=== PATIENT | female | born 2000 | race Caucasian/White ===

== ENCOUNTER 2022-10-10 05:04 | Inpatient (IN) | payer OTHER ==
[~2022-10-10] VITALS: Ht 160 cm; Wt 114.0 kg
[~2022-10-10 05:04] MED LIST: ANTOXYBENA LEFTEAR; AZIT250 PO; Bactrim Ds Tab1 EACH PO; IBUP600 PO; NEXPLANON68 MG; Nix Lice Treatm59 ML TOP; Tylenol With C1 EACH PO
[2022-10-10 05:40] LABS: BASOPHILS ABSOLUTE AUTO 0.05 K/mm3 (0.00-0.23); BASOPHILS PERCENT AUTO 0 % (0-2); EOSINOPHILS ABSOLUTE AUTO 0.12 K/mm3 (0.00-0.68); EOSINOPHILS PERCENT AUTO 1 % (0-6); Hematocrit 34.5 % (33.0-51.0); Hemoglobin 12.3 g/dL (11.5-16.0); IMMATURE GRAN ABSOLUTE AUTO 0.12 K/mm3 (0.00-0.10); IMMATURE GRAN PERCENT AUTO 1 % (0-1); LYMPHOCYTES ABSOLUTE AUTO 3.04 K/mm3 (0.84-5.20); LYMPHOCYTES PERCENT AUTO 18 % (21-46); MONOCYTES ABSOLUTE AUTO 0.68 K/mm3 (0.16-1.47); MONOCYTES PERCENT AUTO 4 % (4-13); Mean Corpuscular HGB 29.9 pg (26.0-34.0); Mean Corpuscular HGB Conc 35.7 g/dL (31.5-36.5); Mean Corpuscular Volume 84 fL (80-100); Mean Platelet Volume 10.6 fL (9.1-12.4); NEUTROPHILS PERCENT AUTO 77 % (41-73); Platelet Count 308 K/mm3 (150-400); RDW Coefficient Variation 12.5 % (11.7-14.2); RDW Standard Deviation 37.9 fL (35.1-46.3); Red Blood Cell Count 4.11 M/mm3 (3.80-5.20); White Blood Cell Count 17.41 K/mm3 (4.00-11.30)
[2022-10-10] MEDS ORDERED: PRENATAL TABLE1 EAC2 PO (06:26)
[2022-10-10] MEDS ORDERED: FERSU300 PO (07:07)
[2022-10-10 20:05] LABS: PCO2 Cord - Arterial 57.1 mmHg (40-50); PO2 Cord - Arterial < 16 mmHg (16-20); pH Cord - Arterial 7.29 (7.28-7.35)
[2022-10-10 20:07] LABS: PCO2 Cord - Venous 51.8 mmHg (40-50); PO2 Cord - Venous < 16 mmHg (28-32); pH Umbilical Cord - Venous 7.32 (7.26-7.35)
[2022-10-11 10:24] LABS: BASOPHILS ABSOLUTE AUTO 0.04 K/mm3 (0.00-0.23); BASOPHILS PERCENT AUTO 0 % (0-2); EOSINOPHILS ABSOLUTE AUTO 0.12 K/mm3 (0.00-0.68); EOSINOPHILS PERCENT AUTO 1 % (0-6); Hematocrit 31.5 % (33.0-51.0); Hemoglobin 10.9 g/dL (11.5-16.0); IMMATURE GRAN PERCENT AUTO 1 % (0-1); LYMPHOCYTES ABSOLUTE AUTO 2.93 K/mm3 (0.84-5.20); LYMPHOCYTES PERCENT AUTO 19 % (21-46); MONOCYTES ABSOLUTE AUTO 0.66 K/mm3 (0.16-1.47); MONOCYTES PERCENT AUTO 4 % (4-13); Mean Corpuscular HGB 29.8 pg (26.0-34.0); Mean Corpuscular HGB Conc 34.6 g/dL (31.5-36.5); Mean Corpuscular Volume 86 fL (80-100); Mean Platelet Volume 10.9 fL (9.1-12.4); NEUTROPHILS ABSOLUTE AUTO 11.32 K/mm3 (1.96-9.15); NEUTROPHILS PERCENT AUTO 75 % (41-73); Platelet Count 254 K/mm3 (150-400); RDW Coefficient Variation 12.6 % (11.7-14.2); RDW Standard Deviation 39.5 fL (35.1-46.3); Red Blood Cell Count 3.66 M/mm3 (3.80-5.20); White Blood Cell Count 15.17 K/mm3 (4.00-11.30)
--- NOTE | 2022-10-11 11:25 | NUR ---
10/11/22 0900 AGREE WITH ASSESSMENT BY ROSALVA DODSON
--- NOTE | 2022-10-12 12:06 | NUR ---
DISCHARGE INSTRUCTIONS, WRITTEN AND VERBAL, GIVEN TO PT. ANSWERED ALL QUESTIONS AND CONCERNS. FOLLOW UP APPOINTMENT SCHEDULED. PRESCRIPTIONS FAXED BY Abilio THOMAS CNM TO [facility]. KEN DICONTINUED. [place] DEPRESSION SCORE OF 5. ALL PERSONAL BELONGINGS RETURNED. PT IS READY FOR DISCHARGE.
--- NOTE | 2022-10-12 13:08 | NUR ---
MOTHER AGREED TO CORE REFERRAL WHILE WAITING FOR NB CAR SEAT CHALLENGE TO BE COMPLETED.
--- NOTE | 2022-10-16 16:23 | NUR ---
LATE ENTRY COPIED OVER OR SURGICAL CHECKLIST TO CORRECT INTERVENTION PER EMR/RN
== END 2022-10-12 15:20 | disposition home or self-care (01) | DRG 787 ==
LOC: OBS 05:04 → BC 05:05 → OBS 05:11 → BC 05:13
PROVIDERS: Family Medicine; ADMIT Registered Nurse Community Health
PROC: 10907ZC Drainage of Amniotic Fluid, Therapeutic from Products of Conception, Via Natural or Artificial Opening (ICD-10-PCS; 2022-10-10)
PROC: 10H07YZ Insertion of Other Device into Products of Conception, Via Natural or Artificial Opening (ICD-10-PCS; 2022-10-10)
PROC: 00HU33Z Insertion of Infusion Device into Spinal Canal, Percutaneous Approach (ICD-10-PCS; 2022-10-10)
PROC: 3E0R3BZ Introduction of Anesthetic Agent into Spinal Canal, Percutaneous Approach (ICD-10-PCS; 2022-10-10)
PROC: 10D00Z1 Extraction of Products of Conception, Low, Open Approach (ICD-10-PCS; principal; 2022-10-10 19:30)
DX: O32.4XX0 Maternal care for high head at term, not applicable or unspecified (principal); O99.324 Drug use complicating childbirth; O99.334 Smoking (tobacco) complicating childbirth; F17.210 Nicotine dependence, cigarettes, uncomplicated; Z3A.39 39 weeks gestation of pregnancy; Z37.0 Single live birth; F12.90 Cannabis use, unspecified, uncomplicated; O99.214 Obesity complicating childbirth; E66.9 Obesity, unspecified; O76 Abnormality in fetal heart rate and rhythm complicating labor and delivery; Z14.1 Cystic fibrosis carrier; Z79.899 Other long term (current) drug therapy; Z88.0 Allergy status to penicillin
CPT/HCPCS: 36415; 51702; 82803; 85025; 86850; 86900; 86901; A9270; J0456; J0690; J1885; J2001; J2270; J2405; J2590; J2765; J3010; J7050; J7120

== ENCOUNTER 2023-09-30 01:06 | Emergency (ER) | payer OTHER ==
[~2023-09-30] VITALS: Ht 160 cm; Wt 108.0 kg
[~2023-09-30 01:06] MED LIST changes: +FERSU300 PO; +PRENATAL TABLE1 EAC2 PO
[2023-09-30 01:27] VITALS: BP 149/108
[2023-09-30] MEDS ORDERED: GABA300 PO (01:30)
[2023-09-30 05:32] LABS: Influenza A, PCR NEGATIVE (NEGATIVE); Influenza B, PCR NEGATIVE (NEGATIVE); Resp Syncytial Virus, PCR NEGATIVE (NEGATIVE); SARS-Cov-2 (COVID-19) PCR, MMC NEGATIVE (NEGATIVE)
== END 2023-09-30 06:27 | disposition home or self-care (01) ==
LOC: ER 01:06
PROVIDERS: Emergency Medicine
DX: J06.9 Acute upper respiratory infection, unspecified (principal); J02.8 Acute pharyngitis due to other specified organisms; B97.89 Other viral agents as the cause of diseases classified elsewhere; F17.200 Nicotine dependence, unspecified, uncomplicated; Z11.52 Encounter for screening for COVID-19; Z88.0 Allergy status to penicillin
CPT/HCPCS: 0241U; 87081; 87430; 99283